=== PATIENT | female | born 1955 | race Caucasian/White ===

== ENCOUNTER 2021-06-20 15:16 | Inpatient (IN) ==
[2021-06-20] MEDS ORDERED: Morphine Sulfate 2 MG/ML SYRINGE IVP PRN (18:53)
[2021-06-20] MEDS ORDERED: 0.9 % Sodium Chloride 1,000 ML IVC SCH (21:45)
[2021-06-20] MEDS ORDERED: GuaiFENesin Liq 200 MG/10 ML UDC PO ONE (21:46)
[2021-06-20] MEDS ORDERED: Ondansetron 4 MG/2 ML VIAL IVP PRN (21:49)
[2021-06-20] MEDS ORDERED: Acetaminophen 325 MG TABLET PO PRN (21:49)
[2021-06-20] MEDS ORDERED: Naloxone 0.4 MG/ML INJ IVP PRN (21:49)
[2021-06-20] MEDS ORDERED: Perflutren Lipid Microsphere 1.3 ML in 0.9 % Sodium Chloride 8.7 ML IVP PRN (22:10)
[2021-06-20] MEDS: traZODone 50 MG TABLET PO SCH (22:13)
[2021-06-20] MEDS: *HR* OxyCODONE Immed Rel 5 MG TABLET PO PRN (22:13)
[2021-06-20] MEDS: Melatonin 3 MG TABLET PO SCH (22:13)
[2021-06-20] MEDS: clonazePAM 0.5 MG TABLET PO SCH (22:13)
[2021-06-20] MEDS: Levalbuterol Neb 1.25 MG/3 ML IH SCH (22:23)
[2021-06-20] MEDS ORDERED: Nicotine 14 MG PATCH.TD24 TD SCH (22:30)
[2021-06-21] MEDS: Levalbuterol Neb 1.25 MG/3 ML IH SCH ×4 (03:44→20:55)
[2021-06-21] MEDS: *HR* OxyCODONE Immed Rel 5 MG TABLET PO PRN ×2 (04:14→11:58)
[2021-06-21 05:20] LABS: Hematocrit 33.9 % (35.3-44.9); Hemoglobin 11.7 g/dL (11.5-15.4); Mean Corpuscular HGB Conc 34.5 g/dL (31.6-35.5); Mean Corpuscular Hemoglobin 30.1 pg (28.0-33.3); Mean Corpuscular Volume 87.1 fL (83.0-100.0); Mean Platelet Volume 9.4 fL (9.4-12.4); Platelet Count 193 K/mcL (140-400); Red Blood Count 3.89 M/mcL (3.82-4.97); Red Cell Distribution Width 12.1 % (11.5-14.5); White Blood Count 8.7 K/mcL (4.3-11.1)
[2021-06-21 05:29] LABS: INR 0.9; Prothrombin Time 10.1 Seconds (9.4-12.1)
[2021-06-21 05:32] LABS: Activated Partial Thrombo Time 27.6 Seconds (26.0-36.0)
[2021-06-21 05:40] LABS: BUN/Creatinine Ratio 10 (6-26); Blood Urea Nitrogen 10 mg/dL (8-23); Calcium 9.1 mg/dL (8.6-10.3); Carbon Dioxide 28 mEq/L (23-29); Chloride 89 mEq/L (98-107); Chol/HDL Ratio 2.6 (0-4.9); Cholesterol 213 mg/dL (< 200); Glucose 125 mg/dL (70-105); HDL Cholesterol 83 mg/dL (40-59); LDL Cholesterol,Calculated 108 mg/dL (< 100); Magnesium 1.7 mg/dL (1.6-2.6); Osmolality,Calculated 259 (280-300); Potassium 3.8 mEq/L (3.5-5.1); Sodium 124 mEq/L (136-145); Triglycerides 109 mg/dL (< 150); Troponin I < 0.03 ng/mL (< 0.04); eGFR For African Americans > 60 (> 60); eGFR For Non-African Americans 59 (> 60)
[2021-06-21] MEDS: Metoprolol XL (24 HR) Succ 25 MG TAB.ER.24H PO SCH (07:10)
[2021-06-21] MEDS ORDERED: CeFAZolin Syr 2,000MG/20 ML 2,000 MG/20 ML SYRINGE IVPB ONE (08:00)
[2021-06-21] MEDS ORDERED: Ondansetron 4 MG/2 ML VIAL ONE (08:01)
[2021-06-21] MEDS ORDERED: *HR* FentaNYL (PF) 100 MCG/2 ML VIAL ONE (08:01)
[2021-06-21] MEDS ORDERED: *HR* Midazolam HCl 2 MG/2 ML VIAL ONE (08:01)
[2021-06-21] MEDS ORDERED: *HR* Propofol 200 MG/20 ML VIAL IVP ONE (08:01)
[2021-06-21] MEDS ORDERED: Lidocaine -MPF 2% 2 ML VIAL ONE (08:01)
[2021-06-21] MEDS ORDERED: risperiDONE 0.25 MG TABLET PO SCH (09:00)
[2021-06-21] MEDS: Loratadine 10 MG TABLET PO SCH (09:31)
[2021-06-21] MEDS: clonazePAM 0.5 MG TABLET PO SCH ×2 (09:31→21:55)
[2021-06-21] MEDS ORDERED: Nicotine 21 MG PATCH.TD24 TD SCH (10:30)
[2021-06-21] MEDS: CLEAR EYES NATURAL TEARS 15 ML BOTTLE BOTH EYES SCH ×3 (11:50→21:46)
[2021-06-21] MEDS ORDERED: GuaiFENesin Liq 200 MG/10 ML UDC PO ONE (21:46)
[2021-06-21] MEDS: traZODone 50 MG TABLET PO SCH (21:54)
[2021-06-21] MEDS: Melatonin 3 MG TABLET PO SCH (21:55)
[2021-06-22] MEDS: Levalbuterol Neb 1.25 MG/3 ML IH SCH ×4 (04:42→22:14)
[2021-06-22 06:40] LABS: Hematocrit 33.5 % (35.3-44.9); Hemoglobin 11.1 g/dL (11.5-15.4); Mean Corpuscular HGB Conc 33.1 g/dL (31.6-35.5); Mean Corpuscular Hemoglobin 29.6 pg (28.0-33.3); Mean Corpuscular Volume 89.3 fL (83.0-100.0); Mean Platelet Volume 9.1 fL (9.4-12.4); Platelet Count 179 K/mcL (140-400); Red Blood Count 3.75 M/mcL (3.82-4.97); Red Cell Distribution Width 12.5 % (11.5-14.5); White Blood Count 7.4 K/mcL (4.3-11.1)
[2021-06-22 06:58] LABS: BUN/Creatinine Ratio 16 (6-26); Blood Urea Nitrogen 16 mg/dL (8-23); Calcium 8.6 mg/dL (8.6-10.3); Carbon Dioxide 26 mEq/L (23-29); Chloride 95 mEq/L (98-107); Glucose 128 mg/dL (70-105); Osmolality,Calculated 269 (280-300); Sodium 128 mEq/L (136-145); eGFR For African Americans > 60 (> 60); eGFR For Non-African Americans 57 (> 60)
[2021-06-22] MEDS: clonazePAM 0.5 MG TABLET PO SCH ×2 (09:56→20:55)
[2021-06-22] MEDS: Metoprolol XL (24 HR) Succ 25 MG TAB.ER.24H PO SCH (09:56)
[2021-06-22] MEDS: *HR* OxyCODONE Immed Rel 5 MG TABLET PO PRN ×4 (09:56→18:57)
[2021-06-22] MEDS: Loratadine 10 MG TABLET PO SCH (09:56)
[2021-06-22] MEDS ORDERED: Lidocaine -MPF 2% 2 ML VIAL ONE (10:26)
[2021-06-22] MEDS ORDERED: *HR* Midazolam HCl 2 MG/2 ML VIAL ONE (10:26)
[2021-06-22] MEDS ORDERED: *HR* Propofol 200 MG/20 ML VIAL IVP ONE (10:26)
[2021-06-22] MEDS ORDERED: *HR* FentaNYL (PF) 100 MCG/2 ML VIAL ONE (10:26)
[2021-06-22] MEDS ORDERED: Ondansetron 4 MG/2 ML VIAL ONE (10:26)
[2021-06-22] MEDS ORDERED: EPHEDrine 50 MG/ML VIAL ONE (14:45)
[2021-06-22] MEDS: CLEAR EYES NATURAL TEARS 15 ML BOTTLE BOTH EYES SCH ×2 (15:00→21:00)
[2021-06-22] MEDS ORDERED: *HR* HYDROMORPHONE 2 MG/ML VIAL ONE (15:41)
[2021-06-22] MEDS ORDERED: *HR* HYDROcodone/Acet 5/325 mg TABLET PO PRN (15:53)
[2021-06-22] MEDS ORDERED: Ringers Solution, Lactated 1,000 ML ONE (16:02)
[2021-06-22] MEDS ORDERED: Famotidine 20 MG/2 ML VIAL IVP ONE (16:08)
[2021-06-22] MEDS ORDERED: Promethazine 6.25 MG in Water for inj. (sterile) 20 ML IVPB PRN (16:08)
[2021-06-22] MEDS ORDERED: *HR* HYDROmorphone 2 MG TABLET PO PRN (16:08)
[2021-06-22] MEDS ORDERED: Acetaminophen IV 1,000 MG/100 ML BAG IVPB ONE ×2 (16:08→16:20)
[2021-06-22] MEDS ORDERED: Ipratropium/Albuterol Neb 3 ML ONE (16:21)
[2021-06-22] MEDS ORDERED: Ipratropium/Albuterol Neb 3 ML IH ONE (16:22)
[2021-06-22] MEDS: *HR* Labetalol 20 MG/4 ML SYRINGE IVP PRN ×4 (16:41→17:06)
[2021-06-22] MEDS ORDERED: cloNIDine HCL 0.1 MG TABLET PO ONE (17:01)
[2021-06-22] MEDS: *HR* HYDROmorphone (PF) 1 MG/ML SYRINGE IVP PRN ×2 (17:09→17:14)
[2021-06-22] MEDS ORDERED: Perflutren Lipid Microsphere 1.3 ML in 0.9 % Sodium Chloride 8.7 ML IVP PRN (18:42)
[2021-06-22] MEDS ORDERED: Naloxone 0.4 MG/ML INJ IVP PRN (18:42)
[2021-06-22] MEDS: Melatonin 3 MG TABLET PO SCH (20:55)
[2021-06-22] MEDS: traZODone 50 MG TABLET PO SCH (20:55)
[2021-06-22] MEDS ORDERED: CeFAZolin 2 GM/120 ML BAG IVPB SCH (22:00)
[2021-06-23] MEDS ORDERED: CeFAZolin 2 GM/120 ML BAG IVPB SCH
[2021-06-23] MEDS: *HR* OxyCODONE Immed Rel 5 MG TABLET PO PRN ×4 (01:03→20:25)
[2021-06-23] MEDS: Levalbuterol Neb 1.25 MG/3 ML IH SCH ×4 (04:43→21:44)
[2021-06-23 04:59] LABS: Basophils % 0.2 %; Eosinophils % 0.2 %; Hematocrit 30.7 % (35.3-44.9); Hemoglobin 9.9 g/dL (11.5-15.4); Immature Granulocytes % 0.3 % (0-4); Lymphocytes # 1.6 K/mcL (0.6-4.6); Lymphocytes % 14.4 %; Mean Corpuscular HGB Conc 32.2 g/dL (31.6-35.5); Mean Corpuscular Hemoglobin 29.3 pg (28.0-33.3); Mean Corpuscular Volume 90.8 fL (83.0-100.0); Mean Platelet Volume 9.3 fL (9.4-12.4); Monocytes # 0.6 K/mcL (0.0-1.3); Monocytes % 5.4 %; Neutrophils # 8.6 K/mcL (1.6-8.9); Platelet Count 164 K/mcL (140-400); Red Blood Count 3.38 M/mcL (3.82-4.97); Red Cell Distribution Width 12.4 % (11.5-14.5); Segmented Neutrophils % 79.5 %; White Blood Count 10.8 K/mcL (4.3-11.1)
[2021-06-23 05:20] LABS: BUN/Creatinine Ratio 18 (6-26); Blood Urea Nitrogen 13 mg/dL (8-23); Calcium 8.7 mg/dL (8.6-10.3); Carbon Dioxide 26 mEq/L (23-29); Chloride 96 mEq/L (98-107); Glucose 153 mg/dL (70-105); Osmolality,Calculated 269 (280-300); Potassium 4.2 mEq/L (3.5-5.1); Sodium 128 mEq/L (136-145); eGFR For African Americans > 60 (> 60); eGFR For Non-African Americans > 60 (> 60)
[2021-06-23] MEDS: Nicotine 21 MG PATCH.TD24 TD SCH (08:00)
[2021-06-23] MEDS: Loratadine 10 MG TABLET PO SCH (08:02)
[2021-06-23] MEDS: clonazePAM 0.5 MG TABLET PO SCH ×2 (08:02→20:18)
[2021-06-23] MEDS: Metoprolol XL (24 HR) Succ 25 MG TAB.ER.24H PO SCH (08:02)
[2021-06-23] MEDS: risperiDONE 0.25 MG TABLET PO SCH (08:03)
[2021-06-23] MEDS: CLEAR EYES NATURAL TEARS 15 ML BOTTLE BOTH EYES SCH ×4 (13:21→20:19)
[2021-06-23] MEDS: Acetaminophen 325 MG TABLET PO PRN (15:44)
[2021-06-23] MEDS ORDERED: *HR* LORazepam 2 MG/ML VIAL IVP ONE (17:39)
[2021-06-23] MEDS: Melatonin 3 MG TABLET PO SCH (20:18)
[2021-06-23] MEDS: traZODone 50 MG TABLET PO SCH (20:19)
[2021-06-24] MEDS: Levalbuterol Neb 1.25 MG/3 ML IH SCH ×4 (03:58→22:33)
[2021-06-24 04:47] LABS: Basophils % 0.5 %; Eosinophils # 0.3 K/mcL (0.0-0.6); Eosinophils % 3.7 %; Immature Granulocytes % 0.2 % (0-4); Lymphocytes % 35.3 %; Mean Corpuscular HGB Conc 34.5 g/dL (31.6-35.5); Mean Corpuscular Hemoglobin 30.7 pg (28.0-33.3); Mean Platelet Volume 9.5 fL (9.4-12.4); Monocytes # 0.7 K/mcL (0.0-1.3); Monocytes % 7.8 %; Neutrophils # 4.4 K/mcL (1.6-8.9); Platelet Count 159 K/mcL (140-400); Red Blood Count 3.26 M/mcL (3.82-4.97); Red Cell Distribution Width 12.6 % (11.5-14.5); Segmented Neutrophils % 52.5 %; White Blood Count 8.5 K/mcL (4.3-11.1)
[2021-06-24 05:04] LABS: BUN/Creatinine Ratio 14 (6-26); Blood Urea Nitrogen 12 mg/dL (8-23); Calcium 8.5 mg/dL (8.6-10.3); Carbon Dioxide 26 mEq/L (23-29); Chloride 98 mEq/L (98-107); Glucose 107 mg/dL (70-105); Osmolality,Calculated 272 (280-300); Sodium 131 mEq/L (136-145); eGFR For African Americans > 60 (> 60); eGFR For Non-African Americans > 60 (> 60)
[2021-06-24] MEDS: *HR* OxyCODONE Immed Rel 5 MG TABLET PO PRN ×3 (07:01→20:35)
[2021-06-24] MEDS: Acetaminophen 325 MG TABLET PO PRN (07:01)
[2021-06-24] MEDS: Metoprolol XL (24 HR) Succ 25 MG TAB.ER.24H PO SCH (08:34)
[2021-06-24] MEDS: Loratadine 10 MG TABLET PO SCH (08:34)
[2021-06-24] MEDS: risperiDONE 0.25 MG TABLET PO SCH (08:34)
[2021-06-24] MEDS: clonazePAM 0.5 MG TABLET PO SCH ×2 (08:35→20:35)
[2021-06-24] MEDS: Nicotine 21 MG PATCH.TD24 TD SCH (08:35)
[2021-06-24] MEDS: CLEAR EYES NATURAL TEARS 15 ML BOTTLE BOTH EYES SCH ×4 (11:55→20:35)
[2021-06-24] MEDS: *HR* Heparin 5,000 UNIT/ML VIAL SQ SCH ×2 (15:33→20:36)
[2021-06-24] MEDS: Melatonin 3 MG TABLET PO SCH (20:35)
[2021-06-24] MEDS: traZODone 50 MG TABLET PO SCH (20:35)
[2021-06-25] MEDS: Levalbuterol Neb 1.25 MG/3 ML IH SCH ×2 (03:26→11:18)
[2021-06-25 05:37] LABS: Basophils # 0.1 K/mcL (0.0-0.2); Basophils % 0.7 %; Eosinophils # 0.5 K/mcL (0.0-0.6); Eosinophils % 6.6 %; Hematocrit 29.9 % (35.3-44.9); Immature Granulocytes % 0.5 % (0-4); Immature Platelets 2.3 % (1.1-6.1); Lymphocytes # 2.6 K/mcL (0.6-4.6); Lymphocytes % 34.4 %; Mean Corpuscular HGB Conc 33.4 g/dL (31.6-35.5); Mean Corpuscular Hemoglobin 29.9 pg (28.0-33.3); Mean Corpuscular Volume 89.3 fL (83.0-100.0); Monocytes # 0.5 K/mcL (0.0-1.3); Neutrophils # 3.9 K/mcL (1.6-8.9); Platelet Count 180 K/mcL (140-400); Red Blood Count 3.35 M/mcL (3.82-4.97); Red Cell Distribution Width 12.6 % (11.5-14.5); Segmented Neutrophils % 50.8 %; White Blood Count 7.6 K/mcL (4.3-11.1)
[2021-06-25] MEDS: Acetaminophen 325 MG TABLET PO PRN (06:18)
[2021-06-25] MEDS: *HR* OxyCODONE Immed Rel 5 MG TABLET PO PRN ×3 (06:19→21:34)
[2021-06-25] MEDS: *HR* Heparin 5,000 UNIT/ML VIAL SQ SCH ×3 (06:19→21:34)
[2021-06-25 06:34] LABS: BUN/Creatinine Ratio 20 (6-26); Blood Urea Nitrogen 15 mg/dL (8-23); Calcium 8.5 mg/dL (8.6-10.3); Carbon Dioxide 26 mEq/L (23-29); Chloride 95 mEq/L (98-107); Glucose 107 mg/dL (70-105); Osmolality,Calculated 267 (280-300); Potassium 4.1 mEq/L (3.5-5.1); Sodium 128 mEq/L (136-145); eGFR For African Americans > 60 (> 60); eGFR For Non-African Americans > 60 (> 60)
[2021-06-25] MEDS: Metoprolol XL (24 HR) Succ 25 MG TAB.ER.24H PO SCH (08:16)
[2021-06-25] MEDS: CLEAR EYES NATURAL TEARS 15 ML BOTTLE BOTH EYES SCH ×4 (08:16→21:10)
[2021-06-25] MEDS: Nicotine 21 MG PATCH.TD24 TD SCH (08:16)
[2021-06-25] MEDS: clonazePAM 0.5 MG TABLET PO SCH ×2 (08:16→21:34)
[2021-06-25] MEDS: Loratadine 10 MG TABLET PO SCH (08:16)
[2021-06-25] MEDS: risperiDONE 0.25 MG TABLET PO SCH ×2 (08:16→21:34)
[2021-06-25] MEDS ORDERED: Levalbuterol Neb 1.25 MG/3 ML IH PRN (12:57)
[2021-06-25] MEDS: Melatonin 3 MG TABLET PO SCH (21:33)
[2021-06-25] MEDS: traZODone 50 MG TABLET PO SCH (21:34)
[2021-06-26] MEDS: *HR* OxyCODONE Immed Rel 5 MG TABLET PO PRN ×3 (06:40→19:56)
[2021-06-26] MEDS: *HR* Heparin 5,000 UNIT/ML VIAL SQ SCH ×3 (06:40→23:12)
[2021-06-26 07:24] LABS: BUN/Creatinine Ratio 21 (6-26); Blood Urea Nitrogen 14 mg/dL (8-23); Calcium 8.5 mg/dL (8.6-10.3); Carbon Dioxide 27 mEq/L (23-29); Chloride 94 mEq/L (98-107); Glucose 107 mg/dL (70-105); Osmolality,Calculated 267 (280-300); Potassium 4.1 mEq/L (3.5-5.1); Sodium 128 mEq/L (136-145); eGFR For African Americans > 60 (> 60); eGFR For Non-African Americans > 60 (> 60)
[2021-06-26] MEDS: clonazePAM 0.5 MG TABLET PO SCH ×2 (08:35→19:56)
[2021-06-26] MEDS: Ondansetron 4 MG/2 ML VIAL IVP PRN (08:35)
[2021-06-26] MEDS: Loratadine 10 MG TABLET PO SCH (08:35)
[2021-06-26] MEDS: Metoprolol XL (24 HR) Succ 25 MG TAB.ER.24H PO SCH (08:35)
[2021-06-26] MEDS: Nicotine 21 MG PATCH.TD24 TD SCH (08:36)
[2021-06-26] MEDS: CLEAR EYES NATURAL TEARS 15 ML BOTTLE BOTH EYES SCH ×4 (08:36→19:57)
[2021-06-26] MEDS: Melatonin 3 MG TABLET PO SCH (19:56)
[2021-06-26] MEDS: traZODone 50 MG TABLET PO SCH (19:56)
[2021-06-26] MEDS: Acetaminophen 325 MG TABLET PO PRN (19:56)
[2021-06-26] MEDS: risperiDONE 0.25 MG TABLET PO SCH (19:57)
[2021-06-27] MEDS: Ondansetron 4 MG/2 ML VIAL IVP PRN (06:55)
[2021-06-27] MEDS: *HR* Heparin 5,000 UNIT/ML VIAL SQ SCH ×2 (06:55→12:32)
[2021-06-27] MEDS: Metoprolol XL (24 HR) Succ 25 MG TAB.ER.24H PO SCH (09:14)
[2021-06-27] MEDS: clonazePAM 0.5 MG TABLET PO SCH (09:15)
[2021-06-27] MEDS: CLEAR EYES NATURAL TEARS 15 ML BOTTLE BOTH EYES SCH ×3 (09:15→17:49)
[2021-06-27] MEDS: Loratadine 10 MG TABLET PO SCH (09:15)
[2021-06-27] MEDS: Nicotine 21 MG PATCH.TD24 TD SCH (09:15)
[2021-06-27 11:08] VITALS: BP 113/67
[2021-06-27] MEDS: *HR* OxyCODONE Immed Rel 5 MG TABLET PO PRN ×2 (12:32→17:49)
[2021-06-27 16:50] LABS: Adenovirus Not Detected (Not Detect); Bordetella Pertussis Not Detected (Not Detect); Coronavirus 229E Not Detected (Not Detect); Coronavirus HKU1 Not Detected (Not Detect); Coronavirus NL63 Not Detected (Not Detect); Coronavirus OC43 Not Detected (Not Detect); Human Metapneumovirus Not Detected (Not Detect); Human Rhinovirus/Enterovirus Not Detected (Not Detect); Influenza A Subtype 2009 H1 Not Detected (Not Detect); Influenza B Not Detected (Not Detect); Parainfluenza Virus 1 Not Detected (Not Detect); Parainfluenza Virus 2 Not Detected (Not Detect); Parainfluenza Virus 3 Not Detected (Not Detect); Parainfluenza Virus 4 Not Detected (Not Detect); Respiratory Syncytial Virus Not Detected (Not Detect); SARS-CoV-2 Not Detected (Not Detect)
[2021-06-27 16:51] LABS: Chlamydophila pneumoniae Not Detected (Not Detect); Mycoplasma pneumoniae Not Detected (Not Detect)
[2021-06-27 20:08] VITALS: PULSE 68; TEMP 97.2; O2SAT 97
== END 2021-06-27 20:59 | DRG 481 ==
LOC: 2ANU → SUATTDRO 21:50 → 3NENU 06-21 15:08
PROVIDERS: ADMIT Student in an Organized Health Care Education/Training Program; ATTEND Family Medicine

== ENCOUNTER 2022-05-24 20:20 | Inpatient (IN) ==
[2022-05-24] MEDS ORDERED: Naloxone 0.4 MG/ML INJ IVP PRN (23:03)
[2022-05-24] MEDS: Ondansetron ODT 4 MG TAB.RAPDIS SL PRN (23:41)
[2022-05-24] MEDS: Melatonin 3 MG TABLET PO PRN (23:41)
[2022-05-25] MEDS ORDERED: GuaiFENesin Liq 200 MG/10 ML UDC PO PRN (00:05)
[2022-05-25] MEDS: traZODone 50 MG TABLET PO SCH ×2 (00:56→20:28)
[2022-05-25] MEDS: MethylPREDNISolone 40 MG/ML VIAL IVP SCH ×3 (00:56→17:04)
[2022-05-25 02:16] LABS: Basophils % 0.3 %; Eosinophils # 0.1 K/mcL (0.0-0.6); Eosinophils % 0.4 %; Hematocrit 33.9 % (35.3-44.9); Hemoglobin 11.6 g/dL (11.5-15.4); Immature Granulocytes % 0.3 % (0-4); Lymphocytes % 25.4 %; Mean Corpuscular HGB Conc 34.2 g/dL (31.6-35.5); Mean Corpuscular Volume 87.6 fL (83.0-100.0); Mean Platelet Volume 8.9 fL (9.4-12.4); Monocytes # 0.9 K/mcL (0.0-1.3); Monocytes % 7.3 %; Neutrophils # 7.9 K/mcL (1.6-8.9); Platelet Count 283 K/mcL (140-400); Red Blood Count 3.87 M/mcL (3.82-4.97); Red Cell Distribution Width 12.4 % (11.5-14.5); Segmented Neutrophils % 66.3 %; White Blood Count 11.9 K/mcL (4.3-11.1)
[2022-05-25 02:34] LABS: Magnesium 1.5 mg/dL (1.6-2.6); Phosphorous 2.7 mg/dL (2.7-4.5)
[2022-05-25 02:38] LABS: Prothrombin Time 11.1 Seconds (9.4-12.1)
[2022-05-25 03:00] LABS: BUN/Creatinine Ratio 16 (6-26); Blood Urea Nitrogen 11 mg/dL (8-23); Calcium 8.9 mg/dL (8.6-10.3); Carbon Dioxide 23 mEq/L (23-29); Chloride 90 mEq/L (98-107); Ethanol < 10 mg/dL (Less than 10); Glucose 91 mg/dL (70-105); Osmolality,Calculated 249 (280-300); Potassium 3.7 mEq/L (3.5-5.1); Sodium 120 mEq/L (136-145); eGFR For African Americans > 60 (> 60); eGFR For Non-African Americans > 60 (> 60)
[2022-05-25] MEDS: Ipratropium/Albuterol Neb 3 ML IH SCH ×6 (04:02→22:50)
[2022-05-25 09:02] LABS: BUN/Creatinine Ratio 14 (6-26); Blood Urea Nitrogen 12 mg/dL (8-23); Calcium 9.2 mg/dL (8.6-10.3); Carbon Dioxide 27 mEq/L (23-29); Chloride 89 mEq/L (98-107); Glucose 119 mg/dL (70-105); Osmolality,Calculated 253 (280-300); Potassium 4.2 mEq/L (3.5-5.1); Sodium 121 mEq/L (136-145); eGFR For African Americans > 60 (> 60); eGFR For Non-African Americans > 60 (> 60)
[2022-05-25] MEDS: clonazePAM 0.5 MG TABLET PO SCH ×2 (09:21→20:28)
[2022-05-25] MEDS: Nicotine 14 MG PATCH.TD24 TD SCH (09:22)
[2022-05-25] MEDS: Budesonide/Formoterol 160/4.5 1 PUFF INH IH SCH ×2 (10:23→19:59)
[2022-05-25] MEDS: Ondansetron ODT 4 MG TAB.RAPDIS SL PRN (17:04)
[2022-05-25] MEDS: Melatonin 3 MG TABLET PO PRN (20:40)
[2022-05-25] MEDS ORDERED: traZODone 50 MG TABLET PO SCH (21:00)
[2022-05-26] MEDS: MethylPREDNISolone 40 MG/ML VIAL IVP SCH ×4 (00:42→23:50)
[2022-05-26] MEDS: Ipratropium/Albuterol Neb 3 ML IH SCH ×6 (04:20→23:06)
[2022-05-26 05:54] LABS: BUN/Creatinine Ratio 23 (6-26); Blood Urea Nitrogen 19 mg/dL (8-23); Calcium 9.2 mg/dL (8.6-10.3); Carbon Dioxide 25 mEq/L (23-29); Chloride 90 mEq/L (98-107); Glucose 137 mg/dL (70-105); Osmolality,Calculated 258 (280-300); Potassium 4.5 mEq/L (3.5-5.1); Sodium 122 mEq/L (136-145); eGFR For African Americans > 60 (> 60); eGFR For Non-African Americans > 60 (> 60)
[2022-05-26] MEDS: Budesonide/Formoterol 160/4.5 1 PUFF INH IH SCH ×2 (07:39→19:41)
[2022-05-26] MEDS: clonazePAM 0.5 MG TABLET PO SCH ×2 (08:47→21:53)
[2022-05-26] MEDS: Nicotine 14 MG PATCH.TD24 TD SCH (08:48)
[2022-05-26] MEDS: Metoprolol XL (24 HR) Succ 25 MG TAB.ER.24H PO SCH (17:48)
[2022-05-26] MEDS: Fenofibrate 54 MG TABLET PO SCH (21:53)
[2022-05-26] MEDS: Melatonin 3 MG TABLET PO PRN (21:53)
[2022-05-26] MEDS: traZODone 50 MG TABLET PO SCH (21:53)
[2022-05-27] MEDS: Ipratropium/Albuterol Neb 3 ML IH SCH ×6 (03:38→22:51)
[2022-05-27] MEDS: Budesonide/Formoterol 160/4.5 1 PUFF INH IH SCH ×2 (07:21→19:53)
[2022-05-27] MEDS: Venlafaxine XR (24 HR) 75 MG CAP.ER.24H PO SCH (08:31)
[2022-05-27] MEDS: Nicotine 14 MG PATCH.TD24 TD SCH (08:31)
[2022-05-27] MEDS: clonazePAM 0.5 MG TABLET PO SCH ×2 (08:31→21:54)
[2022-05-27] MEDS: Metoprolol XL (24 HR) Succ 25 MG TAB.ER.24H PO SCH (08:31)
[2022-05-27] MEDS: MethylPREDNISolone 40 MG/ML VIAL IVP SCH (08:31)
[2022-05-27] MEDS ORDERED: NON-FORMULARY MEDICATION 1 EACH EACH (Fluticasone/Vilanterol [Breo Ellipta 100-25 Mcg Inh] IH SCH (09:00)
[2022-05-27] MEDS: *HR* Heparin 5,000 UNIT/ML VIAL SQ SCH (20:38)
[2022-05-27] MEDS: Fenofibrate 54 MG TABLET PO SCH (21:54)
[2022-05-27] MEDS: traZODone 50 MG TABLET PO SCH (21:55)
[2022-05-27] MEDS: Melatonin 3 MG TABLET PO PRN (21:55)
[2022-05-28 03:36] LABS: BUN/Creatinine Ratio 39 (6-26); Blood Urea Nitrogen 28 mg/dL (8-23); Calcium 8.9 mg/dL (8.6-10.3); Carbon Dioxide 31 mEq/L (23-29); Chloride 90 mEq/L (98-107); Glucose 84 mg/dL (70-105); Osmolality,Calculated 265 (280-300); Potassium 4.2 mEq/L (3.5-5.1); Sodium 125 mEq/L (136-145); eGFR For African Americans > 60 (> 60); eGFR For Non-African Americans > 60 (> 60)
[2022-05-28] MEDS: Ipratropium/Albuterol Neb 3 ML IH SCH ×7 (03:39→23:03)
[2022-05-28] MEDS: *HR* Heparin 5,000 UNIT/ML VIAL SQ SCH ×2 (05:56→16:58)
[2022-05-28] MEDS: Budesonide/Formoterol 160/4.5 1 PUFF INH IH SCH ×2 (07:40→20:00)
[2022-05-28] MEDS: Venlafaxine XR (24 HR) 75 MG CAP.ER.24H PO SCH (08:25)
[2022-05-28] MEDS: predniSONE 20 MG TABLET PO SCH (08:25)
[2022-05-28] MEDS: clonazePAM 0.5 MG TABLET PO SCH ×2 (08:26→19:45)
[2022-05-28] MEDS: Metoprolol XL (24 HR) Succ 50 MG TAB.ER.24H PO SCH (08:26)
[2022-05-28] MEDS: Nicotine 14 MG PATCH.TD24 TD SCH (08:26)
[2022-05-28] MEDS ORDERED: Saline Nasal Spray 44 ML BOTTLE NS PRN (10:48)
[2022-05-28] MEDS: Ondansetron ODT 4 MG TAB.RAPDIS SL PRN (13:11)
[2022-05-28] MEDS: *HR* OxyCODONE/APAP 10/325 TABLET PO PRN ×2 (13:15→18:13)
[2022-05-28] MEDS: Fenofibrate 54 MG TABLET PO SCH (19:44)
[2022-05-28] MEDS: Melatonin 3 MG TABLET PO PRN (22:02)
[2022-05-28] MEDS: traZODone 50 MG TABLET PO SCH (22:02)
[2022-05-29 03:32] LABS: Hematocrit 29.8 % (35.3-44.9); Hemoglobin 10.2 g/dL (11.5-15.4); Mean Corpuscular HGB Conc 34.2 g/dL (31.6-35.5); Mean Corpuscular Hemoglobin 30.6 pg (28.0-33.3); Mean Corpuscular Volume 89.5 fL (83.0-100.0); Mean Platelet Volume 9.4 fL (9.4-12.4); Platelet Count 240 K/mcL (140-400); Red Blood Count 3.33 M/mcL (3.82-4.97); Red Cell Distribution Width 13.2 % (11.5-14.5); White Blood Count 14.7 K/mcL (4.3-11.1)
[2022-05-29 03:55] LABS: BUN/Creatinine Ratio 38 (6-26); Blood Urea Nitrogen 24 mg/dL (8-23); Calcium 8.8 mg/dL (8.6-10.3); Carbon Dioxide 29 mEq/L (23-29); Chloride 89 mEq/L (98-107); Glucose 96 mg/dL (70-105); Osmolality,Calculated 262 (280-300); Potassium 4.4 mEq/L (3.5-5.1); Sodium 124 mEq/L (136-145); eGFR For African Americans > 60 (> 60); eGFR For Non-African Americans > 60 (> 60)
[2022-05-29] MEDS: *HR* OxyCODONE/APAP 10/325 TABLET PO PRN ×4 (05:47→19:31)
[2022-05-29] MEDS: *HR* Heparin 5,000 UNIT/ML VIAL SQ SCH ×2 (05:48→17:05)
[2022-05-29] MEDS: Ipratropium/Albuterol Neb 3 ML IH SCH ×4 (07:55→20:19)
[2022-05-29] MEDS: Budesonide/Formoterol 160/4.5 1 PUFF INH IH SCH ×2 (07:55→20:20)
[2022-05-29] MEDS: Ondansetron ODT 4 MG TAB.RAPDIS SL PRN ×2 (09:09→17:06)
[2022-05-29] MEDS: predniSONE 20 MG TABLET PO SCH (09:09)
[2022-05-29] MEDS: Metoprolol XL (24 HR) Succ 50 MG TAB.ER.24H PO SCH (09:09)
[2022-05-29] MEDS: clonazePAM 0.5 MG TABLET PO SCH ×2 (09:09→21:39)
[2022-05-29] MEDS: risperiDONE 0.25 MG TABLET PO SCH (09:10)
[2022-05-29] MEDS: Venlafaxine XR (24 HR) 75 MG CAP.ER.24H PO SCH (09:10)
[2022-05-29] MEDS: Nicotine 14 MG PATCH.TD24 TD SCH (09:10)
[2022-05-29] MEDS ORDERED: Sennosides/Docusate Sodium TABLET PO SCH (11:45)
[2022-05-29] MEDS: traZODone 50 MG TABLET PO SCH (21:37)
[2022-05-29] MEDS: Fenofibrate 54 MG TABLET PO SCH (21:38)
[2022-05-29] MEDS: Melatonin 3 MG TABLET PO PRN (21:39)
[2022-05-29] MEDS: Sennosides/Docusate Sodium TABLET PO SCH (21:39)
[2022-05-30] MEDS: Ipratropium/Albuterol Neb 3 ML IH SCH ×8 (00:06→20:15)
[2022-05-30] MEDS: *HR* OxyCODONE/APAP 10/325 TABLET PO PRN ×4 (05:05→20:54)
[2022-05-30] MEDS: *HR* Heparin 5,000 UNIT/ML VIAL SQ SCH ×2 (05:05→17:26)
[2022-05-30] MEDS: Sennosides/Docusate Sodium TABLET PO SCH ×2 (07:28→21:50)
[2022-05-30] MEDS: risperiDONE 0.25 MG TABLET PO SCH (07:28)
[2022-05-30] MEDS: Nicotine 14 MG PATCH.TD24 TD SCH (07:28)
[2022-05-30] MEDS: clonazePAM 0.5 MG TABLET PO SCH ×2 (07:28→21:50)
[2022-05-30] MEDS: Metoprolol XL (24 HR) Succ 50 MG TAB.ER.24H PO SCH (07:28)
[2022-05-30] MEDS: Venlafaxine XR (24 HR) 75 MG CAP.ER.24H PO SCH (07:28)
[2022-05-30] MEDS: Budesonide/Formoterol 160/4.5 1 PUFF INH IH SCH ×2 (07:55→20:03)
[2022-05-30] MEDS: Ondansetron ODT 4 MG TAB.RAPDIS SL PRN (11:39)
[2022-05-30] MEDS: Melatonin 3 MG TABLET PO PRN (21:50)
[2022-05-30] MEDS: Fenofibrate 54 MG TABLET PO SCH (21:50)
[2022-05-30] MEDS: traZODone 50 MG TABLET PO SCH (21:50)
[2022-05-31] MEDS: *HR* OxyCODONE/APAP 10/325 TABLET PO PRN ×4 (04:12→18:17)
[2022-05-31] MEDS: *HR* Heparin 5,000 UNIT/ML VIAL SQ SCH ×2 (05:18→16:47)
[2022-05-31] MEDS: risperiDONE 0.25 MG TABLET PO SCH ×2 (07:28→21:46)
[2022-05-31] MEDS: Budesonide/Formoterol 160/4.5 1 PUFF INH IH SCH ×2 (07:37→19:59)
[2022-05-31] MEDS: Ipratropium/Albuterol Neb 3 ML IH SCH ×2 (07:37→11:08)
[2022-05-31] MEDS: Nicotine 14 MG PATCH.TD24 TD SCH (07:38)
[2022-05-31] MEDS: Sennosides/Docusate Sodium TABLET PO SCH ×2 (07:39→21:46)
[2022-05-31] MEDS: clonazePAM 0.5 MG TABLET PO SCH ×2 (07:39→21:46)
[2022-05-31] MEDS: Venlafaxine XR (24 HR) 75 MG CAP.ER.24H PO SCH (07:39)
[2022-05-31] MEDS: Metoprolol XL (24 HR) Succ 50 MG TAB.ER.24H PO SCH (07:39)
[2022-05-31] MEDS: Ipratropium/Albuterol Neb 3 ML IH PRN (20:00)
[2022-05-31] MEDS: Fenofibrate 54 MG TABLET PO SCH (21:45)
[2022-05-31] MEDS: traZODone 50 MG TABLET PO SCH (21:46)
[2022-05-31] MEDS: Melatonin 3 MG TABLET PO PRN (21:46)
[2022-06-01 02:34] LABS: Hematocrit 28.8 % (35.3-44.9); Hemoglobin 9.7 g/dL (11.5-15.4); Mean Corpuscular HGB Conc 33.7 g/dL (31.6-35.5); Mean Platelet Volume 9.1 fL (9.4-12.4); Platelet Count 279 K/mcL (140-400); Red Blood Count 3.13 M/mcL (3.82-4.97); Red Cell Distribution Width 13.3 % (11.5-14.5); White Blood Count 11.5 K/mcL (4.3-11.1)
[2022-06-01 02:58] LABS: BUN/Creatinine Ratio 31 (6-26); Blood Urea Nitrogen 27 mg/dL (8-23); Calcium 8.8 mg/dL (8.6-10.3); Carbon Dioxide 27 mEq/L (23-29); Chloride 93 mEq/L (98-107); Glucose 91 mg/dL (70-105); Osmolality,Calculated 267 (280-300); Potassium 4.2 mEq/L (3.5-5.1); Sodium 126 mEq/L (136-145); eGFR For African Americans > 60 (> 60); eGFR For Non-African Americans > 60 (> 60)
[2022-06-01] MEDS: *HR* OxyCODONE/APAP 10/325 TABLET PO PRN ×4 (05:10→20:28)
[2022-06-01] MEDS: *HR* Heparin 5,000 UNIT/ML VIAL SQ SCH ×2 (05:10→16:44)
[2022-06-01] MEDS: Venlafaxine XR (24 HR) 75 MG CAP.ER.24H PO SCH (07:20)
[2022-06-01] MEDS: Nicotine 14 MG PATCH.TD24 TD SCH (07:21)
[2022-06-01] MEDS: clonazePAM 0.5 MG TABLET PO SCH ×2 (07:21→20:30)
[2022-06-01] MEDS: Metoprolol XL (24 HR) Succ 50 MG TAB.ER.24H PO SCH (07:21)
[2022-06-01] MEDS: Sennosides/Docusate Sodium TABLET PO SCH ×2 (07:21→20:30)
[2022-06-01] MEDS: Budesonide/Formoterol 160/4.5 1 PUFF INH IH SCH ×2 (09:48→20:08)
[2022-06-01] MEDS: Ipratropium/Albuterol Neb 3 ML IH PRN ×2 (09:49→20:08)
[2022-06-01] MEDS: Ondansetron ODT 4 MG TAB.RAPDIS SL PRN (13:21)
[2022-06-01] MEDS: Fenofibrate 54 MG TABLET PO SCH (20:29)
[2022-06-01] MEDS: risperiDONE 0.25 MG TABLET PO SCH (20:30)
[2022-06-01] MEDS: traZODone 50 MG TABLET PO SCH (22:15)
[2022-06-01] MEDS: Melatonin 3 MG TABLET PO PRN (22:15)
[2022-06-02 03:27] LABS: Hematocrit 28.2 % (35.3-44.9); Hemoglobin 9.5 g/dL (11.5-15.4); Mean Corpuscular HGB Conc 33.7 g/dL (31.6-35.5); Mean Corpuscular Hemoglobin 30.4 pg (28.0-33.3); Mean Corpuscular Volume 90.4 fL (83.0-100.0); Mean Platelet Volume 9.1 fL (9.4-12.4); Platelet Count 286 K/mcL (140-400); Red Blood Count 3.12 M/mcL (3.82-4.97); Red Cell Distribution Width 13.2 % (11.5-14.5); White Blood Count 12.2 K/mcL (4.3-11.1)
[2022-06-02 03:44] LABS: BUN/Creatinine Ratio 30 (6-26); Blood Urea Nitrogen 28 mg/dL (8-23); Calcium 8.5 mg/dL (8.6-10.3); Carbon Dioxide 28 mEq/L (23-29); Chloride 94 mEq/L (98-107); Glucose 94 mg/dL (70-105); Osmolality,Calculated 271 (280-300); Potassium 4.3 mEq/L (3.5-5.1); Sodium 128 mEq/L (136-145); eGFR For African Americans > 60 (> 60); eGFR For Non-African Americans 60 (> 60)
[2022-06-02] MEDS: *HR* OxyCODONE/APAP 10/325 TABLET PO PRN ×2 (06:09→10:49)
[2022-06-02] MEDS: *HR* Heparin 5,000 UNIT/ML VIAL SQ SCH (06:14)
[2022-06-02 07:42] VITALS: BP 113/46; PULSE 73; TEMP 97.6
[2022-06-02] MEDS: Ipratropium/Albuterol Neb 3 ML IH PRN (08:08)
[2022-06-02] MEDS: Budesonide/Formoterol 160/4.5 1 PUFF INH IH SCH (08:08)
[2022-06-02 08:11] VITALS: O2SAT 93
[2022-06-02] MEDS: Sennosides/Docusate Sodium TABLET PO SCH (09:24)
[2022-06-02] MEDS: Metoprolol XL (24 HR) Succ 50 MG TAB.ER.24H PO SCH (09:24)
[2022-06-02] MEDS: Venlafaxine XR (24 HR) 75 MG CAP.ER.24H PO SCH (09:24)
[2022-06-02] MEDS: clonazePAM 0.5 MG TABLET PO SCH (09:24)
[2022-06-02] MEDS: Nicotine 14 MG PATCH.TD24 TD SCH (09:24)
[2022-06-02 11:55] LABS: Adenovirus Not Detected (Not Detect); Bordetella Pertussis Not Detected (Not Detect); Chlamydophila pneumoniae Not Detected (Not Detect); Coronavirus 229E Not Detected (Not Detect); Coronavirus HKU1 Not Detected (Not Detect); Coronavirus NL63 Not Detected (Not Detect); Coronavirus OC43 Not Detected (Not Detect); Human Metapneumovirus Not Detected (Not Detect); Human Rhinovirus/Enterovirus Not Detected (Not Detect); Influenza A Subtype 2009 H1 Not Detected (Not Detect); Influenza B Not Detected (Not Detect); Mycoplasma pneumoniae Not Detected (Not Detect); Parainfluenza Virus 1 Not Detected (Not Detect); Parainfluenza Virus 2 Not Detected (Not Detect); Parainfluenza Virus 3 Not Detected (Not Detect); Parainfluenza Virus 4 Not Detected (Not Detect); Respiratory Syncytial Virus Not Detected (Not Detect); SARS-CoV-2 Not Detected (Not Detect)
== END 2022-06-02 13:45 | disposition other institution (70) | DRG 191 ==
LOC: 2NENU → SUATTDRO 22:37
PROVIDERS: ADMIT Internal Medicine; ATTEND Internal Medicine

== ENCOUNTER 2022-09-08 17:26 | Inpatient (IN) ==
[2022-09-08] MEDS ORDERED: Ondansetron 4 MG/2 ML VIAL IVP PRN (20:36)
[2022-09-08] MEDS ORDERED: Naloxone 0.4 MG/ML INJ IVP PRN (20:36)
[2022-09-08] MEDS ORDERED: Acetaminophen 325 MG TABLET PO PRN (20:36)
[2022-09-08] MEDS: Ipratropium/Albuterol Neb 3 ML IH PRN (20:49)
[2022-09-08] MEDS ORDERED: Furosemide 20 MG/2 ML VIAL IVP ONE (21:20)
[2022-09-08 22:32] LABS: Bilirubin,Urine Negative (Negative); Blood,Urine Negative (Negative); Clarity,Urine Clear (Clear); Color,Urine Colorless (Yellow); Glucose,Urine (UA) Normal (Normal); Ketones,Urine Negative (Negative); Leukocyte Esterase,Urine Negative (Negative); Nitrite,Urine Negative (Negative); Protein,Urine Negative (Neg-Trace); Specific Gravity,Urine 1.013 (1.010-1.025); Urobilinogen,Urine Normal (Normal)
[2022-09-08] MEDS: Budesonide/Formoterol 80/4.5 1 PUFF INH IH SCH (23:15)
[2022-09-08 23:20] LABS: Adenovirus Not Detected (Not Detect); Bordetella Pertussis Not Detected (Not Detect); Chlamydophila pneumoniae Not Detected (Not Detect); Coronavirus 229E Not Detected (Not Detect); Coronavirus HKU1 Not Detected (Not Detect); Coronavirus NL63 Not Detected (Not Detect); Coronavirus OC43 Not Detected (Not Detect); Human Metapneumovirus Not Detected (Not Detect); Human Rhinovirus/Enterovirus Not Detected (Not Detect); Influenza A Subtype 2009 H1 Not Detected (Not Detect); Influenza B Not Detected (Not Detect); Mycoplasma pneumoniae Not Detected (Not Detect); Parainfluenza Virus 1 Not Detected (Not Detect); Parainfluenza Virus 2 Not Detected (Not Detect); Parainfluenza Virus 3 Not Detected (Not Detect); Parainfluenza Virus 4 Not Detected (Not Detect); Respiratory Syncytial Virus Not Detected (Not Detect); SARS-CoV-2 Not Detected (Not Detect)
[2022-09-08] MEDS: risperiDONE 0.25 MG TABLET PO SCH (23:25)
[2022-09-08] MEDS: clonazePAM 0.5 MG TABLET PO SCH (23:25)
[2022-09-08] MEDS: traZODone 50 MG TABLET PO SCH (23:25)
[2022-09-09] MEDS: methylPREDNISolone 125 MG/2 ML VIAL IVP SCH ×5 (00:05→23:55)
[2022-09-09 04:58] LABS: Hematocrit 31.3 % (35.3-44.9); Hemoglobin 9.9 g/dL (11.5-15.4); Immature Granulocytes % 0.5 % (0-4); Lymphocytes # 0.7 K/mcL (0.6-4.6); Lymphocytes % 10.4 %; Mean Corpuscular HGB Conc 31.6 g/dL (31.6-35.5); Mean Corpuscular Hemoglobin 29.8 pg (28.0-33.3); Mean Corpuscular Volume 94.3 fL (83.0-100.0); Mean Platelet Volume 9.7 fL (9.4-12.4); Monocytes # 0.1 K/mcL (0.0-1.3); Monocytes % 1.9 %; Neutrophils # 5.5 K/mcL (1.6-8.9); Platelet Count 233 K/mcL (140-400); Red Blood Count 3.32 M/mcL (3.82-4.97); Red Cell Distribution Width 13.9 % (11.5-14.5); Segmented Neutrophils % 87.2 %; White Blood Count 6.3 K/mcL (4.3-11.1)
[2022-09-09 05:07] LABS: Prothrombin Time 10.6 Seconds (9.4-12.1)
[2022-09-09 05:37] LABS: Albumin 3.6 g/dL (3.5-5.7); Albumin/Globulin Ratio 1.6 (1.1-2.2); Bilirubin,Indirect 0.2 mg/dL (0.0-1.0); Bilirubin,Total 0.2 mg/dL (0.3-1.0); Calcium 9.1 mg/dL (8.6-10.3); Globulin 2.3 g/dL (2.4-3.5); Magnesium 1.6 mg/dL (1.6-2.6); Potassium 4.9 mEq/L (3.5-5.1); Thyroid Stimulating Hormone 0.333 mcIU/mL (0.340-5.600); Total Protein 5.9 g/dL (6.4-8.9)
[2022-09-09] MEDS: Budesonide/Formoterol 80/4.5 1 PUFF INH IH SCH ×2 (07:26→19:41)
[2022-09-09] MEDS: clonazePAM 0.5 MG TABLET PO SCH ×2 (08:15→19:35)
[2022-09-09] MEDS: Venlafaxine XR (24 HR) 75 MG CAP.ER.24H PO SCH (08:15)
[2022-09-09] MEDS: *HR* Enoxaparin 40 MG/0.4 ML SYRINGE SQ SCH (08:15)
[2022-09-09] MEDS: Nicotine 21 MG PATCH.TD24 TD SCH (08:15)
[2022-09-09] MEDS: *HR* OxyCODONE Immed Rel 5 MG TABLET PO PRN ×3 (08:24→20:55)
[2022-09-09] MEDS: Ipratropium/Albuterol Neb 3 ML IH PRN ×2 (08:45→12:45)
[2022-09-09] MEDS ORDERED: Metoprolol XL (24 HR) Succ 25 MG TAB.ER.24H PO SCH (09:00)
[2022-09-09] MEDS ORDERED: Moderna COVID-19 Vac ,BIVALENT BOOSTER 50 MCG/0.5 ML VIAL IM ONE (14:03)
[2022-09-09] MEDS: Ipratropium/Albuterol Neb 3 ML IH SCH ×3 (17:12→22:41)
[2022-09-09] MEDS: levoFLOXacin 500 MG/100 ML 500 MG/100 ML BAG IVPB SCH (17:42)
[2022-09-09] MEDS: risperiDONE 0.25 MG TABLET PO SCH (19:35)
[2022-09-09] MEDS: traZODone 50 MG TABLET PO SCH (23:54)
[2022-09-10] MEDS: Ipratropium/Albuterol Neb 3 ML IH SCH ×6 (03:44→23:46)
[2022-09-10] MEDS: methylPREDNISolone 125 MG/2 ML VIAL IVP SCH ×2 (05:45→18:08)
[2022-09-10] MEDS: *HR* OxyCODONE Immed Rel 5 MG TABLET PO PRN ×3 (06:47→20:51)
[2022-09-10] MEDS: Budesonide/Formoterol 80/4.5 1 PUFF INH IH SCH ×2 (07:31→20:18)
[2022-09-10] MEDS ORDERED: Acetaminophen 325 MG TABLET PO PRN (08:00)
[2022-09-10] MEDS: *HR* Enoxaparin 40 MG/0.4 ML SYRINGE SQ SCH (09:38)
[2022-09-10] MEDS: Venlafaxine XR (24 HR) 75 MG CAP.ER.24H PO SCH (09:38)
[2022-09-10] MEDS: Loratadine 10 MG TABLET PO SCH (09:38)
[2022-09-10] MEDS: Metoprolol XL (24 HR) Succ 50 MG TAB.ER.24H PO SCH (09:38)
[2022-09-10] MEDS: clonazePAM 0.5 MG TABLET PO SCH ×2 (09:38→20:45)
[2022-09-10] MEDS: Nicotine 21 MG PATCH.TD24 TD SCH (09:38)
[2022-09-10] MEDS: levoFLOXacin 500 MG/100 ML 500 MG/100 ML BAG IVPB SCH (18:10)
[2022-09-10] MEDS: Fenofibrate 54 MG TABLET PO SCH (20:45)
[2022-09-10] MEDS: Mirtazapine 15 MG TABLET PO SCH (20:45)
[2022-09-10] MEDS: Melatonin 3 MG TABLET PO SCH (20:45)
[2022-09-10] MEDS: risperiDONE 0.25 MG TABLET PO SCH (20:45)
[2022-09-10] MEDS: traZODone 50 MG TABLET PO SCH (20:46)
[2022-09-11] MEDS: Ipratropium/Albuterol Neb 3 ML IH SCH ×5 (04:00→19:36)
[2022-09-11] MEDS: methylPREDNISolone 125 MG/2 ML VIAL IVP SCH ×2 (05:57→17:00)
[2022-09-11] MEDS: Venlafaxine XR (24 HR) 75 MG CAP.ER.24H PO SCH (07:28)
[2022-09-11] MEDS: clonazePAM 0.5 MG TABLET PO SCH ×2 (07:28→20:40)
[2022-09-11] MEDS: *HR* OxyCODONE Immed Rel 5 MG TABLET PO PRN ×2 (07:28→16:11)
[2022-09-11] MEDS: Loratadine 10 MG TABLET PO SCH (07:28)
[2022-09-11] MEDS: Metoprolol XL (24 HR) Succ 50 MG TAB.ER.24H PO SCH (07:28)
[2022-09-11] MEDS: Nicotine 21 MG PATCH.TD24 TD SCH (07:29)
[2022-09-11] MEDS: *HR* Enoxaparin 40 MG/0.4 ML SYRINGE SQ SCH (07:29)
[2022-09-11] MEDS: Budesonide/Formoterol 80/4.5 1 PUFF INH IH SCH ×2 (07:57→19:36)
[2022-09-11] MEDS: levoFLOXacin 500 MG/100 ML 500 MG/100 ML BAG IVPB SCH (16:07)
[2022-09-11] MEDS: Melatonin 3 MG TABLET PO SCH (20:39)
[2022-09-11] MEDS: traZODone 50 MG TABLET PO SCH (20:40)
[2022-09-11] MEDS: Mirtazapine 15 MG TABLET PO SCH (20:40)
[2022-09-11] MEDS: Fenofibrate 54 MG TABLET PO SCH (20:40)
[2022-09-11] MEDS: risperiDONE 0.25 MG TABLET PO SCH (20:40)
[2022-09-12] MEDS: Ipratropium/Albuterol Neb 3 ML IH SCH ×7 (00:07→23:29)
[2022-09-12] MEDS: methylPREDNISolone 125 MG/2 ML VIAL IVP SCH (06:15)
[2022-09-12] MEDS: *HR* Enoxaparin 40 MG/0.4 ML SYRINGE SQ SCH (07:45)
[2022-09-12] MEDS: Nicotine 21 MG PATCH.TD24 TD SCH (07:48)
[2022-09-12] MEDS: clonazePAM 0.5 MG TABLET PO SCH ×2 (07:52→19:41)
[2022-09-12] MEDS: Venlafaxine XR (24 HR) 75 MG CAP.ER.24H PO SCH (07:52)
[2022-09-12] MEDS: Loratadine 10 MG TABLET PO SCH (07:52)
[2022-09-12] MEDS: Metoprolol XL (24 HR) Succ 50 MG TAB.ER.24H PO SCH (07:52)
[2022-09-12] MEDS: *HR* OxyCODONE Immed Rel 5 MG TABLET PO PRN ×2 (08:47→15:05)
[2022-09-12] MEDS: Budesonide/Formoterol 80/4.5 1 PUFF INH IH SCH ×2 (10:51→19:58)
[2022-09-12 14:49] LABS: Calcium 8.6 mg/dL (8.6-10.3)
[2022-09-12] MEDS: risperiDONE 0.25 MG TABLET PO SCH (19:41)
[2022-09-12] MEDS: traZODone 50 MG TABLET PO SCH (19:42)
[2022-09-12] MEDS: Mirtazapine 15 MG TABLET PO SCH (19:42)
[2022-09-12] MEDS: Fenofibrate 54 MG TABLET PO SCH (19:42)
[2022-09-12] MEDS: Melatonin 3 MG TABLET PO SCH (19:42)
[2022-09-12] MEDS: Acetylcysteine 10% 2 ML INHSOL IH SCH ×2 (19:57→23:29)
[2022-09-13 02:32] LABS: Hematocrit 32.6 % (35.3-44.9); Hemoglobin 10.3 g/dL (11.5-15.4); Mean Corpuscular HGB Conc 31.6 g/dL (31.6-35.5); Mean Corpuscular Hemoglobin 29.3 pg (28.0-33.3); Mean Corpuscular Volume 92.9 fL (83.0-100.0); Mean Platelet Volume 9.1 fL (9.4-12.4); Platelet Count 204 K/mcL (140-400); Red Blood Count 3.51 M/mcL (3.82-4.97); Red Cell Distribution Width 14.6 % (11.5-14.5); White Blood Count 8.3 K/mcL (4.3-11.1)
[2022-09-13 02:50] LABS: Calcium 8.9 mg/dL (8.6-10.3); Potassium 4.4 mEq/L (3.5-5.1)
[2022-09-13 03:36] VITALS: TEMP 98.3
[2022-09-13] MEDS: Ipratropium/Albuterol Neb 3 ML IH SCH ×3 (03:47→10:34)
[2022-09-13] MEDS: Acetylcysteine 10% 2 ML INHSOL IH SCH ×3 (03:47→10:34)
[2022-09-13] MEDS: Nicotine 21 MG PATCH.TD24 TD SCH (08:49)
[2022-09-13] MEDS: *HR* OxyCODONE Immed Rel 5 MG TABLET PO PRN ×2 (08:49→15:02)
[2022-09-13] MEDS: clonazePAM 0.5 MG TABLET PO SCH (08:49)
[2022-09-13] MEDS: Metoprolol XL (24 HR) Succ 50 MG TAB.ER.24H PO SCH (08:49)
[2022-09-13] MEDS: Venlafaxine XR (24 HR) 75 MG CAP.ER.24H PO SCH (08:49)
[2022-09-13] MEDS: Loratadine 10 MG TABLET PO SCH (08:50)
[2022-09-13] MEDS: *HR* Enoxaparin 40 MG/0.4 ML SYRINGE SQ SCH (08:50)
[2022-09-13] MEDS ORDERED: predniSONE 20 MG TABLET PO SCH (09:00)
[2022-09-13 10:26] VITALS: O2SAT 96
[2022-09-13] MEDS: Budesonide/Formoterol 80/4.5 1 PUFF INH IH SCH (10:34)
[2022-09-13 14:57] VITALS: BP 139/68; PULSE 71
== END 2022-09-13 16:07 | disposition home or self-care (01) | DRG 190 ==
LOC: 3BNU → SUATTDRO 20:06
PROVIDERS: ADMIT Hospitalist; ATTEND Student in an Organized Health Care Education/Training Program